=== PATIENT | male | born 1970 ===

== ENCOUNTER 2021-01-31 06:22 | Day surgery (SDC) | payer OTHER | END 2021-01-31 11:30 | disposition home or self-care (01) | LOC: AMB-ENDOS 06:22 | PROVIDERS: ATTEND Colon & Rectal Surgery | DX: D12.4 Benign neoplasm of descending colon (principal); D12.5 Benign neoplasm of sigmoid colon; K64.0 First degree hemorrhoids; Z20.822 Contact with and (suspected) exposure to COVID-19 ==